=== PATIENT | female | born 1995 | race Caucasian/White ===

== ENCOUNTER 2017-01-05 19:39 | Emergency (ER) | payer SELFPAY ==
[2017-01-05 20:24] LABS: Hematocrit 38.7 % (30.3-42.9); Hemoglobin 12.9 gm/dl (10.1-14.3); Mean Corpuscular HGB Conc 33 % (30-34); Mean Corpuscular Hemoglobin 29 pg (28-32); Mean Corpuscular Volume 88 fl (79-97); Platelet Count 280 K/mm3 (140-440); Red Blood Count 4.41 M/mm3 (3.65-5.03); Red Cell Distribution Width 13.5 % (13.2-15.2); White Blood Count 12.8 K/mm3 (4.5-11.0)
[2017-01-05 20:29] LABS: Bilirubin,Urine NEG (Negative); Blood,Urine NEG (Negative); Ketones,Urine NEG (Negative); Leukocyte Esterase,Urine NEG (Negative); Mucus,Urine FEW /HPF; Nitrite,Urine NEG (Negative); Protein,Urine <15 mg/dL mg/dL (Negative); Urobilinogen,Urine < 2.0 mg/dL (<2.0)
[2017-01-05 20:43] LABS: Anion Gap 22 mmol/L; BUN/Creatinine Ratio 11.66; Blood Urea Nitrogen 7 mg/dL (7-17); Carbon Dioxide 18 mmol/L (22-30); Chloride 101.5 mmol/L (98-107); Glucose 94 mg/dL (65-100); Potassium 3.3 mmol/L (3.6-5.0); Sodium 138 mmol/L (137-145)
[2017-01-05 22:55] VITALS: BP 110/59
[2017-01-05] MEDS ORDERED: K-DUR PO ONE (23:09)
--- NOTE | 2017-01-05 23:10 | Emergency Department Report ---
ED Anxiety HPI - General Chief Complaint: Chest Pain Stated Complaint: CHEST PAIN Time Seen by Provider: 01/05/17 23:06 Source: patient Mode of arrival: Ambulatory - History of Present Illness Initial Comments: Pt is a 21-year-old female with no past medical history presenting with anxiety. Patient reports she was sitting on her bed and arguing with her mom when all of a sudden felt her heart racing, SOB, chest pain, and tingling in her hands. Patient reports episode lasted 10-15 minutes is now resolved. Patient reports no history of panic attacks in herself or her family. Otherwise no other complaints, patient was her normal self prior to the episode and is now back at her baseline MD Complaint: anxiety, heart racing, shortness of breath, other (carpalpedal spasm) - Related Data Allergies/Adverse Reactions: Allergies Allergy/AdvReac Type Severity Reaction Status Date / Time No Known Allergies Allergy Verified 01/05/17 22:51 ED Review of Systems ROS: Stated complaint: CHEST PAIN Other details as noted in HPI Comment: All other systems reviewed and negative ED Past Medical Hx - Past Medical History Previous Medical History?: Yes Additional medical history: anemia - Social History Smoking Status: Never Smoker Substance Use Type: None ED Physical Exam - General Limitations: No Limitations General appearance: alert, in no apparent distress - Head Head exam: Present: atraumatic, normocephalic - Eye Eye exam: Present: normal appearance - ENT ENT exam: Present: mucous membranes moist - Neck Neck exam: Present: normal inspection - Respiratory Respiratory exam: Present: normal lung sounds bilaterally. Absent: respiratory distress, wheezes, rales - Cardiovascular Cardiovascular Exam: Present: regular rate, normal rhythm. Absent: irregular rhythm, systolic murmur, diastolic murmur, rubs, gallop - GI/Abdominal GI/Abdominal exam: Present: soft, normal bowel sounds. Absent: distended, tenderness, guarding, rebound - Extremities Exam Extremities exam: Present: normal inspection - Back Exam Back exam: Present: normal inspection - Neurological Exam Neurological exam: Present: alert, oriented X3 - Psychiatric Psychiatric exam: Present: normal affect, normal mood - Skin Skin exam: Present: warm, dry, intact, normal color. Absent: rash ED Course Vital Signs 01/05/17 01/05/17 19:50 22:53 Temperature 98.6 F Pulse Rate 71 59 L Respiratory 20 16 Rate Blood Pressure 132/78 Blood Pressure 110/59 [Left] O2 Sat by Pulse 100 97 Oximetry ED Medical Decision Making - Lab Data Result diagrams: 01/05/17 20:00 01/05/17 20:00 - EKG Data -: EKG Interpreted by Me (19:38) EKG shows normal: sinus rhythm, axis (normal axis, LAE), intervals (Qtc:448ms), QRS complexes, ST-T waves ((-)ST T changes, no STEMI) - Medical Decision Making Had discussion with patient, she likely had a panic attack triggered by arguing with her mother. Instructed patient to follow up with her PMD Critical care attestation.: If time is entered above; I have spent that time in minutes in the direct care of this critically ill patient, excluding procedure time. ED Disposition Clinical Impression: Anxiety attack, Hypokalemia Disposition: DISCHARGED TO HOME OR SELFCARE Is pt being admited?: No Condition: Stable Instructions: Hypokalemia (ED), Anxiety (ED) Referrals: PRIMARY CARE, [Primary Care Provider] - 3-5 Days
== END 2017-01-06 00:05 | disposition home or self-care (01) ==
LOC: EDBD → ED 19:39
DX: F41.9 Anxiety disorder, unspecified (principal); E87.6 Hypokalemia
CPT/HCPCS: 36415; 80048; 81001; 81025; 85027; 93005; 93010; 99283

== ENCOUNTER 2018-12-24 16:31 | Emergency (ER) | payer MEDICAID ==
[2018-12-24 16:41] VITALS: BP 125/68
--- NOTE | 2018-12-24 16:42 | Emergency Department Report ---
Chief Complaint: Medical Clearance Stated Complaint: 8WKS PREG /COLD SX/INSOMNIA Time Seen by Provider: 12/24/18 16:38 - HPI History of Present Illness: This is a 23 y.o. female that presents to the ER with body aches, congestion, and insomnia. Patient is 8 weeks . Followed by [facility]. She have a f/u appointment Sunday. Denies vaginal bleeding or discharge - Exam Vital Signs: Vital Signs 12/24/18 16:40 Temperature 98 F Pulse Rate 88 Respiratory 16 Rate Blood Pressure 125/68 O2 Sat by Pulse 97 Oximetry MSE screening note: Focused history and physical exam performed. Due to findings the following was ordered: ACC for further evaluation. ED Disposition for MSE Condition: Stable
--- NOTE | 2018-12-24 20:14 | Emergency Department Report ---
ED General Adult HPI - General Chief complaint: Medical Clearance Stated complaint: 8WKS PREG /COLD SX/INSOMNIA Time Seen by Provider: 12/24/18 16:38 Source: patient Mode of arrival: Ambulatory Limitations: No Limitations - History of Present Illness Initial comments: Patient is a 23-year-old female who is 8 weeks who presents for primary complaint of insomnia for the last month patient denies URI symptoms no cold no fevers no chills no nausea vomiting no Fever or chills no dysuria no frequency no urgency no hematuria denies vaginal discharge is no abdominal cramping or vaginal discharge or bleeding patient has upcoming [facility] affiliation in 3 days. patient states she attempted Benadryl 1 with no result Onset/Timin -: month(s) Severity scale (0 -10): 3 Consistency: constant Improves with: none Worsens with: none Associated Symptoms: denies other symptoms - Related Data Previous Rx's Medication Instructions Recorded Last Taken Type diphenhydrAMINE [Benadryl CAP] 25 mg PO QHS PRN #15 capsule 12/24/18 Unknown Rx Allergies Allergy/AdvReac Type Severity Reaction Status Date / Time No Known Allergies Allergy Verified 01/05/17 22:51 ED Review of Systems ROS: Stated complaint: 8WKS PREG /COLD SX/INSOMNIA Other details as noted in HPI Constitutional: denies: chills, fever Eyes: denies: eye pain, eye discharge, vision change ENT: denies: ear pain, throat pain Respiratory: denies: cough, shortness of breath, wheezing Cardiovascular: denies: chest pain, palpitations Endocrine: no symptoms reported Gastrointestinal: denies: abdominal pain, nausea, diarrhea Genitourinary: denies: urgency, dysuria, discharge Musculoskeletal: denies: back pain, joint swelling, arthralgia Skin: denies: rash, lesions Neurological: as per HPI Psychiatric: denies: anxiety, depression Hematological/Lymphatic: denies: easy bleeding, easy bruising ED Past Medical Hx - Past Medical History Previous Medical History?: Yes Additional medical history: anemia - Surgical History Past Surgical History?: No - Social History Smoking Status: Never Smoker Substance Use Type: None - Medications Home Medications: Home Medications Medication Instructions Recorded Confirmed Last Taken Type diphenhydrAMINE [Benadryl CAP] 25 mg PO QHS PRN #15 capsule 12/24/18 Unknown Rx ED Physical Exam - General Limitations: No Limitations General appearance: alert, in no apparent distress - Head Head exam: Present: atraumatic, normocephalic - Eye Eye exam: Present: normal appearance, PERRL, EOMI Pupils: Present: normal accommodation - ENT ENT exam: Present: normal orophraynx, mucous membranes moist, TM's normal bilaterally, normal external ear exam - Neck Neck exam: Present: normal inspection, full ROM. Absent: tenderness, meningismus, lymphadenopathy, thyromegaly - Respiratory Respiratory exam: Present: normal lung sounds bilaterally. Absent: respiratory distress, wheezes, stridor, chest wall tenderness - Cardiovascular Cardiovascular Exam: Present: regular rate, normal rhythm, normal heart sounds. Absent: systolic murmur, diastolic murmur, rubs, gallop - GI/Abdominal GI/Abdominal exam: Present: soft, normal bowel sounds. Absent: tenderness, bruit, hernia - Rectal Rectal exam: Present: deferred - Extremities Exam Extremities exam: Present: normal inspection, full ROM, normal capillary refill. Absent: tenderness, pedal edema, joint swelling, calf tenderness - Back Exam Back exam: Present: normal inspection, full ROM. Absent: tenderness, CVA tenderness (R), CVA tenderness (L), rash noted - Neurological Exam Neurological exam: Present: alert, oriented X3, CN II-XII intact, normal gait, reflexes normal. Absent: motor sensory deficit - Expanded Neurological Exam Expanded Patient oriented to: Present: person, place, time Cranial nerves: EOM's Intact: Normal, Gag Reflex: Normal, Tongue Deviation: Normal, Nystagmus: Normal, Facial Sensation: Normal Cerebellar function: Finger to Nose: Normal, Heel to Patrick: Normal, Romberg: Normal Motor strength exam: RUE: 5, LUE: 5, RLE: 5, LLE: 5 Best Eye Response (Greene): (4) open spontaneously Best Motor Response (Greene): (6) obeys commands Best Verbal Response (Ty): (5) oriented Ty Total: 15 - Psychiatric Psychiatric exam: Present: normal affect, normal mood - Skin Skin exam: Present: warm, dry, intact, normal color. Absent: rash ED Course Vital Signs 12/24/18 16:40 Temperature 98 F Pulse Rate 88 Respiratory 16 Rate Blood Pressure 125/68 O2 Sat by Pulse 97 Oximetry ED Medical Decision Making - Lab Data Labs 12/24/18 12/24/18 Unknown Unknown Urine Color Yellow Urine Turbidity Clear Urine pH 7.0 Ur Specific [place] 1.023 Urine Protein <15 mg/dl Urine Glucose (UA) Neg Urine Ketones Neg Urine Blood Neg Urine Nitrite Neg Urine Bilirubin Neg Urine Urobilinogen < 2.0 Ur Leukocyte Esterase Neg Urine WBC (Auto) 1.0 Urine RBC (Auto) 4.0 U Epithel Cells (Auto) 3.0 Urine HCG, Qual Positive A Urine Opiates Screen Presumptive negative Urine Methadone Screen Presumptive negative Ur Barbiturates Screen Presumptive negative Ur Phencyclidine Scrn Presumptive negative Ur Amphetamines Screen Presumptive negative U Benzodiazepines Scrn Presumptive negative Urine Cocaine Screen Presumptive negative U Marijuana (THC) Screen Presumptive negative - Medical Decision Making Normal plan Benadryl when necessary insomnia follow up with [facility] as scheduled in 3 days . Verbalized agreement and understanding same will be DC'd to home in stable condition at this time patient is alert and oriented laboratory with steady gait. Critical care attestation.: If time is entered above; I have spent that time in minutes in the direct care of this critically ill patient, excluding procedure time. ED Disposition Clinical Impression: Insomnia Qualifiers: Insomnia type: unspecified Qualified Code(s): G47.00 - Insomnia, unspecified Disposition: DC-01 TO HOME OR SELFCARE Is pt being admited?: No Does the pt Need Aspirin: No Condition: Stable Instructions: Insomnia (ED) Prescriptions: diphenhydrAMINE [Benadryl CAP] 25 mg PO QHS PRN #15 capsule PRN Reason: Insomnia Referrals: [facility] [Provider Group] - 3-5 Days Forms: Work/School Release Form(ED) Time of Disposition: 21:01
[2018-12-24 20:46] LABS: Bilirubin,Urine NEG (Negative); Blood,Urine NEG (Negative); Color,Urine Yellow (Yellow); Protein,Urine <15 mg/dL mg/dL (Negative); Urobilinogen,Urine < 2.0 mg/dL (<2.0)
[2018-12-24 20:47] LABS: HCG Qualitative,Urine Positive (Negative)
[2018-12-24 20:52] LABS: Amphetamine Screen,Urine PRESUMPTIVE NEGATIVE; Benzodiazepines Screen,Urine PRESUMPTIVE NEGATIVE; Cannabinoid Screen,Urine PRESUMPTIVE NEGATIVE; Cocaine Screen,Urine PRESUMPTIVE NEGATIVE; Methadone Screen,Urine PRESUMPTIVE NEGATIVE; Opiate Screen,Urine PRESUMPTIVE NEGATIVE
== END 2018-12-24 21:04 | disposition home or self-care (01) ==
LOC: ED 16:31
DX: O26.891 Other specified pregnancy related conditions, first trimester (principal); Z3A.08 8 weeks gestation of pregnancy; G47.00 Insomnia, unspecified
CPT/HCPCS: 80307; 81001; 81025; 99282